=== PATIENT | male | born 1965 | race Two or more races ===

== ENCOUNTER 2017-01-15 16:21 | Emergency (ER) | payer SELFPAY ==
[2017-01-15] MEDS ORDERED: Ondansetron 4 MG/2 ML SDV IVPUSH ONE (16:42)
[2017-01-15] MEDS ORDERED: Sodium Chloride 0.9% 1,000 ML IV ONE (16:42)
[2017-01-15] MEDS ORDERED: Ketorolac 30 MG/ML SDV IVPUSH ONE (16:44)
--- NOTE | 2017-01-15 16:44 | EDM.PDOC ---
ED HPI GENERAL MEDICAL PROBLEM - General Chief Complaint: General Stated Complaint: ABDOMINAL PAIN Time Seen by Provider: 01/15/17 16:30 Source of Information: Reports: Patient History Limitations: Reports: No Limitations - History of Present Illness INITIAL COMMENTS - FREE TEXT/NARRATIVE: History of present illness: [51-year-old male presenting with feelings of right sided abdominal pain. Patient indicates that he has had nausea and vomiting and just does not feel well. Patient also indicates he has an extensive history of kidney stones and lithotripsy.] Review of systems: As per history of present illness and below otherwise all systems reviewed and negative. Past medical history: As per history of present illness and as reviewed below otherwise noncontributory. Surgical history: As per history of present illness and as reviewed below otherwise noncontributory. Social history: No reported history of drug or alcohol abuse. Family history: As per history of present illness and as reviewed below otherwise noncontributory. Physical exam: HEENT: Atraumatic, normocephalic, pupils reactive, negative for conjunctival pallor or scleral icterus, mucous membranes moist, throat clear, neck supple, nontender, trachea midline. Lungs: Clear to auscultation, breath sounds equal bilaterally, chest nontender. Heart: S1S2, regular, negative for clicks, rubs, or JVD. Abdomen: Soft, nondistended, nontender. Negative for masses or hepatosplenomegaly. Negative for costovertebral tenderness. Pelvis: Stable nontender. Genitourinary: Deferred. Rectal: Deferred. Extremities: Atraumatic, negative for cords or calf pain. Neurovascular unremarkable. Neuro: Awake, alert, oriented. Cranial nerves II through XII unremarkable. Cerebellum unremarkable. Motor and sensory unremarkable throughout. Exam nonfocal. Diagnostics: [CBC, CMP, lipase, amylase] Therapeutics: [IV fluid, Zofran, Toradol] Impression: [Renal calculi] Plan: [Anti-emetics follow up with power bender operator] Definitive disposition and diagnosis as appropriate pending reevaluation and review of above. abdomen Pain Score (Numeric/FACES): 7 - Related Data Allergies Allergy/AdvReac Type Severity Reaction Status Date / Time celecoxib [From Celebrex] Allergy swelling Verified 01/15/17 16:30 on the throat dye Allergy Rash Uncoded 01/15/17 16:30 Home Meds: Home Meds Omeprazole 0 mg PO DAILY 01/15/17 [History] Past Medical History - Past Health History Medical/Surgical History: Denies Medical/Surgical History HEENT History: Reports: None Genitourinary History: Reports: Renal Calculus Neurological History: Reports: None Psychiatric History: Reports: None Endocrine/Metabolic History: Reports: Diabetes, Type II Dermatologic History: Reports: None - Infectious Disease History Infectious Disease History: Reports: None, Chicken Pox, Hepatitis C, Measles - Past Surgical History Head Surgeries/Procedures: Reports: None GI Surgical History: Reports: Cholecystectomy Male Surgical History: Reports: Lithotripsy (ESWL) Musculoskeletal Surgical History: Reports: Shoulder Surgery Social & Family History - Family History Family Medical History: Noncontributory GI: Reports: None Endocrine/Metabolic: Reports: None - Tobacco Use Smoking Status *Q: Current Every Day Smoker Years of Tobacco use: 30 Packs/Tins Daily: 1 - Caffeine Use Caffeine Use: Reports: Coffee Caffeine Use Comment: 1 cup daily - Recreational Drug Use Recreational Drug Use: No ED ROS GENERAL - Review of Systems Review Of Systems: See Below (See history of present illness) ED EXAM, GENERAL - Physical Exam Exam: See Below (See history of present illness) Course - Vital Signs Last Recorded V/S: Last Vital Signs Temp 36.6 C 01/15/17 16:32 Pulse 60 01/15/17 16:32 Resp 18 01/15/17 16:32 BP 150/84 H 01/15/17 16:32 Pulse Ox 100 01/15/17 16:32 - Orders/Labs/Meds Orders: Active Orders 24 hr Category Date Time Status Abdomen Pelvis w Cont [CT] Stat Exams 01/15/17 17:59 Taken Labs: Laboratory Tests 01/15/17 01/15/17 Range/Units 16:55 16:55 WBC 8.60 (4.0-11.0) K/uL RBC 5.26 (4.50-5.90) M/uL Hgb 16.4 (13.0-17.0) g/dL Hct 45.8 (38.0-50.0) % MCV 87.1 (80.0-98.0) fL MCH 31.2 (27.0-32.0) pg MCHC 35.8 (31.0-37.0) g/dL RDW Std Deviation 42.3 (28.0-62.0) fl RDW Coeff of Lyla 13 (11.0-15.0) % Plt Count 201 (150-400) K/uL MPV 11.10 (7.40-12.00) fL Neut % (Auto) 50.1 (48.0-80.0) % Lymph % (Auto) 42.6 H (16.0-40.0) % [place] % (Auto) 6.0 (0.0-15.0) % Eos % (Auto) 1.0 (0.0-7.0) % Baso % (Auto) 0.3 (0.0-1.5) % Neut # (Auto) 4.3 (1.4-5.7) K/uL Lymph # (Auto) 3.7 H (0.6-2.4) K/uL [place] # (Auto) 0.5 (0.0-0.8) K/uL Eos # (Auto) 0.1 (0.0-0.7) K/uL Baso # (Auto) 0.0 (0.0-0.1) K/uL Nucleated RBC % 0.0 /100WBC Nucleated RBCs # 0 K/uL Sodium 142 (136-146) mmol/L Potassium 3.3 L (3.5-5.1) mmol/L Chloride 108 (98-110) mmol/L Carbon Dioxide 23 (21-31) mmol/L BUN 14 (6.0-23.0) mg/dL Creatinine 0.9 (0.6-1.5) mg/dL Est Cr Clr Drug Dosing 103.42 mL/min Estimated GFR (MDRD) > 60.0 ml/min Glucose 95 (60-110) mg/dL Calcium 9.1 (8.8-10.8) mg/dL Total Bilirubin 0.5 (0.1-1.5) mg/dL AST 29 (5-40) IU/L ALT 38 (8-54) IU/L Alkaline Phosphatase 104 (40-150) Total Protein 7.4 (6.0-8.0) g/dL Albumin 4.4 (3.5-5.0) g/dL Globulin 3.0 (2.0-3.5) g/dL Albumin/Globulin Ratio 1.5 (1.3-2.8) Amylase 61 (10-90) U/L Lipase 45 (7-80) U/L Meds: Medications Discontinued Medications Generic Name Dose Route Start Last Admin Trade Name Pauly PRN Reason Stop Dose Admin Sodium Chloride 1,000 mls @ 999 mls/hr 01/15/17 16:42 01/15/17 16:59 Normal Saline IV 01/15/17 17:42 999 mls/hr STAT ONE Administration Iopamidol 100 ml 01/15/17 18:08 01/15/17 18:10 Isovue Multipack-370 (76%) IVPUSH 01/15/17 18:09 100 ml ONETIME STA Administration Ketorolac Tromethamine 30 mg 01/15/17 16:44 01/15/17 17:05 Toradol IVPUSH 01/15/17 16:45 30 mg ONETIME ONE Administration Ondansetron HCl 8 mg 01/15/17 16:42 01/15/17 17:03 Zofran IVPUSH 01/15/17 16:43 8 mg ONETIME ONE Administration Departure - Departure Time of Disposition: 19:47 Disposition: Home, Self-Care 01 Condition: Good Clinical Impression: Renal calculi - Discharge Information Forms: ED Department Discharge Additional Instructions: The following information is given to patients seen in the emergency department who are being discharged to home. This information is to outline your options for follow-up care. We provide all patients seen in our emergency department with a follow-up referral. The need for follow-up, as well as the timing and circumstances, are variable depending upon the specifics of your emergency department visit. If you don't have a primary care physician on staff, we will provide you with a referral. We always advise you to contact your personal physician following an emergency department visit to inform them of the circumstance of the visit and for follow-up with them and/or the need for any referrals to a consulting specialist. The emergency department will also refer you to a specialist when appropriate. This referral assures that you have the opportunity for follow-up care with a specialist. All of these measure are taken in an effort to provide you with optimal care, which includes your follow-up. Under all circumstances we always encourage you to contact your private physician who remains a resource for coordinating your care. When calling for follow-up care, please make the office aware that this follow-up is from your recent emergency room visit. If for any reason you are refused follow-up, please contact the [facility] Emergency Department at and asked to speak to the emergency department charge nurse. You're being provided medicine for nausea as discussed Continue hydration Follow up with your power bender operator that she had been seen for continued concerns with your kidneys and kidney stones - My Orders Last 24 Hours: My Active Orders 01/15/17 17:59 Abdomen Pelvis w Cont [CT] Stat - Assessment/Plan Last 24 Hours: My Active Orders 01/15/17 17:59 Abdomen Pelvis w Cont [CT] Stat
[2017-01-15 17:21] LABS: CHLORIDE,CL 108 mmol/L (98-110); SODIUM,NA 142 mmol/L (136-146)
[2017-01-15] MEDS ORDERED: Iopamidol 755 MG/ML 500 ML Multipack Bottle IVPUSH STA (18:08)
[2017-01-15 20:09] VITALS: BP 157/81
--- NOTE | 2017-01-16 10:27 | CT ---
EXAM DATE: 01/15/17 PATIENT'S AGE: 51 Patient: GARTH PRICE Facility: [place], [place] Site . Site : 1965 Study: CT Abdomen/Pelvis [id number] 6:39:38 PM Ordering Physician: Doctor Fairbanks Final Report: INDICATION: Right lower quadrant pain TECHNIQUE: CT abdomen and pelvis acquired with IV contrast. COMPARISON: 11/21/15 FINDINGS: Lower chest: Unremarkable. Liver: Unremarkable. Spleen: Unremarkable. Pancreas: Unremarkable. Gallbladder and bile ducts: Cholecystectomy. Adrenal glands: Unremarkable. Kidneys: Left renal upper pole caliectasis due to a 1.0 x 0.9 centimeter calculus in the left renal pelvis. Multiple additional nonobstructive bilateral renal calcifications, left greater than right, including a staghorn type left renal lower pole calculus. Several renal cysts again seen, including a mildly complex left renal upper pole lesion which has slightly increased in size. No discrete ureteral calcifications seen. GI tract: No mechanical bowel obstruction. Fluid-filled small bowel segments are nonspecific. A normal appendix. No significant pericolonic changes. Vascular structures: Arthrosclerotic changes Lymph nodes: Unremarkable. Miscellaneous: Unremarkable. No free air or significant free fluid. Pelvic Organs: Unremarkable. Bones: Unremarkable for age. IMPRESSION: No evidence of appendicitis, diverticulitis or bowel obstruction. Fluid-filled small bowel segments are nonspecific. Correlate for enteritis. Mild left renal upper pole obstructive uropathy due to a 1 centimeter calculus in the left renal pelvis. Multiple additional nonobstructive bilateral renal calcifications. An apparently mildly complex left renal upper pole cyst again seen, slightly increased in prominence. Recommend sonographic surveillance. Dictated by Hesham Roldan MD @ 01/15/2017 7:40:30 PM Dictated by: Hesham Roldan MD @ 01/15/2017 19:40:37 (Electronic Signature) Report Signed by Proxy. SHILOH
== END 2017-01-15 20:09 | disposition home or self-care (01) ==
LOC: MW.ED 16:21
DX: N20.0 Calculus of kidney (principal); E11.9 Type 2 diabetes mellitus without complications; F17.210 Nicotine dependence, cigarettes, uncomplicated; Z90.49 Acquired absence of other specified parts of digestive tract; Z98.890 Other specified postprocedural states; Z79.899 Other long term (current) drug therapy; Z88.8 Allergy status to other drugs, medicaments and biological substances
CPT/HCPCS: 36415; 74177; 80053; 82150; 83690; 85025; 96361; 96374; 96375; 99284; J1885; J2405; J7040; Q9967

== ENCOUNTER 2017-11-03 13:00 | Emergency (ER) | payer SELFPAY ==
[2017-11-03] MEDS ORDERED: Sodium Chloride 0.9% 2.5 ML Syringe FLUSH PRN (13:06)
[2017-11-03] MEDS ORDERED: Sodium Chloride 0.9% 10 ML Syringe FLUSH PRN (13:06)
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
[2017-11-03 13:50] LABS: CHLORIDE,CL 103 mmol/L (98-107); SODIUM,NA 140 mmol/L (136-148)
[2017-11-03 14:46] VITALS: BP 138/82
--- NOTE | 2017-11-04 13:31 | CR ---
EXAM DATE: 11/03/17 PATIENT'S AGE: 52 Patient: GARTH PRICE Facility: [place], [place] Site . Site : 1965 Study: XRay Chest [id number] 1:33:15 PM Ordering Physician: Doctor Fairbanks Final Report: INDICATION: Chest pain. COMPARISON: Chest radiograph September 06, 2016. TECHNIQUE: Two-view chest. FINDINGS: Normal size cardiac silhouette. Clear lung larkin without evidence of acute pneumonic infiltrates or CHF. No pneumothorax or pleural effusion. Impression: Negative chest. Dictated by Joseph Gutierrez MD @ Nov 03 2017 1:34PM (Electronic Signature) Report Signed by Proxy. SHILOH
--- NOTE | 2017-11-04 13:32 | CT ---
EXAM DATE: 11/03/17 PATIENT'S AGE: 52 Patient: GARTH PRICE Facility: [place], [place] Site . Site : 1965 Study: CT Head [id number] 1:35:14 PM Ordering Physician: Doctor Fairbanks Final Report: INDICATION: Right-sided weakness; resolving at the time of the scanning. Comparison :none. TECHNIQUE: CT head without intravenous contrast; coronal and sagittal reformats. FINDINGS: No evidence of intracranial hemorrhage. No mass lesions. No evidence of shift of the midline structures. The calvarium is unremarkable. The ventricular system , this subarachnoid cisterns and the cerebral sulci are unremarkable. IMPRESSION: Negative unenhanced head CT. Please note that all CT scans at this facility use dose modulation, iterative reconstruction, and/or weight-based dosing when appropriate to reduce radiation dose to as low as reasonably achievable. Dictated by Joseph Gutierrez MD @ Nov 03 2017 1:35PM (Electronic Signature) Report Signed by Proxy. MTDD
== END 2017-11-03 15:03 | disposition home or self-care (01) ==
LOC: MW.ED 13:00
DX: R07.9 Chest pain, unspecified (principal); E11.9 Type 2 diabetes mellitus without complications; F17.210 Nicotine dependence, cigarettes, uncomplicated; Z91.018 Allergy to other foods; Z87.442 Personal history of urinary calculi; Z90.49 Acquired absence of other specified parts of digestive tract
CPT/HCPCS: 36415; 70450; 70450-26; 71046; 71046-26; 80053; 82150; 83690; 84484; 85025; 85610; 93005; 99284; 99285-25